=== PATIENT | female | born 1955 | race Caucasian/White ===

== ENCOUNTER → 2016-09-07 | Outpatient (CLI) | payer OTHER | LOC: FIMAGING 14:25 | DX: Z12.31 Encounter for screening mammogram for malignant neoplasm of breast (principal) | CPT/HCPCS: G0202 ==

== ENCOUNTER 2016-11-17 09:15 | Emergency (ER) | payer OTHER ==
[2016-11-17] MEDS ORDERED: ONDANSETRON 4 MG/2 ML VIAL IVP ONE (09:44)
[2016-11-17] MEDS ORDERED: NS 1,000 ML IV ONE ×2 (09:54→10:23)
[2016-11-17] MEDS ORDERED: ACETAMINOPHEN 500 MG TAB PO ONE (09:54)
[2016-11-17] MEDS ORDERED: KETAMINE 500 MG/10 ML VIAL NASAL ONE (09:54)
[2016-11-17] MEDS ORDERED: KETOROLAC 15 MG/1 ML SDV IVP ONE (09:54)
[2016-11-17 09:59] LABS: % IMMATURE GRANULYOCYTES 0.4 % (0.0-1.1); ABSOLUTE IMMATURE GRANULOCYTES 0.03 10^3/uL (0.00-0.10); ADD DIFF? NO; ADD MORPH? NO; ADD SCAN? NO; ATYPICAL LYMPHOCYTE FLAG 10 (0-99); FRAGMENT RBC FLAG 0 (0-99); HEMATOCRIT 45.1 % (38.0-47.0); HEMOGLOBIN 14.9 g/dL (12.6-16.3); LEFT SHIFT FLG 0 (0-99); LIPEMIA HEMOLYSIS FLAG 80 (0-99); MEAN CELL HEMOGLOBIN 30.2 pg (27.9-34.1); MEAN CELL VOLUME 91.3 fL (81.5-99.8); MEAN PLATELET VOLUME 10.7 fL (8.7-11.7); PLATELET CLUMPS FLAG 0 (0-99); PLATELET COUNT 245 10^3/uL (150-400); RED BLOOD CELL COUNT 4.94 10^6/uL (4.18-5.33); RED CELL DISTRIBUTION WIDTH 12.9 % (11.5-15.2)
[2016-11-17 10:01] LABS: COLOR YELLOW; LEUKOCYTE ESTERASE,URINE TRACE (NEGATIVE); NITRITE,URINE NEGATIVE (NEGATIVE)
--- NOTE | 2016-11-17 10:02 | EDPHY ---
H & P Stated Complaint: L flank pain starting at 0700 Time Seen by Provider: 11/17/16 09:53 HPI/ROS: CHIEF COMPLAINT: Flank pain HISTORY OF PRESENT ILLNESS: The patient is a 60 y/o female arriving with her complaining of severe and rapidly progressing left flank pain onset at 07:00 this morning, about 3 hours ago. She has a history of several bladder surgeries and recurring UTIs, but denies any recent UTI symptoms and felt normal yesterday. She initially thought her pain was the "worst gas pain on the planet" and it did not improve after a bowel movement. Her pain has worsened dramatically and feels localized to her left flank. It is nonradiating. Nothing alleviates her pain. She has associated waves of nausea. No history of prior kidney stones. Colonoscopy in August this year showed diverticulosis. REVIEW OF SYSTEMS: Constitutional: No fever, no chills Eyes: No visual changes ENT: No sore throat Respiratory: No cough, no shortness of breath Cardiac: No chest pain Gastrointestinal: see HPI Genitourinary: No hematuria, no dysuria Musculoskeletal: No leg pain or swelling Skin: No rash Neurological: No headache, no numbness, no weakness Psychiatric: No depression - Personal History Current Tetanus/Diphtheria Vaccine: Unsure Current Tetanus Diphtheria and Acellular Pertussis (TDAP): Unsure - Medical/Surgical History PMH: Cystocele, bladder prolapse, complications from bladder mesh, hysterectomy, recurring UTIs Hx Asthma: No Hx Chronic Respiratory Disease: No Hx Diabetes: No Hx Cardiac Disease: No Hx Renal Disease: No Hx Cirrhosis: No Hx Alcoholism: No Hx HIV/AIDS: No Hx Splenectomy or Spleen Trauma: No Other PMH: Hyster,foot surgery, T/A, Prolapse repair with mesh and then mesk removed. - Social History Smoking Status: Former smoker Additional Social History: at bedside. - Physical Exam Exam: General Appearance: Alert, appears in pain Eyes: Pupils equal and round, no conjunctival pallor or injection ENT, Mouth: Mucous membranes moist Neck: Normal inspection Respiratory: Lungs are clear to auscultation Cardiovascular: Regular rate and rhythm Gastrointestinal: Abdomen is soft with LUQ tenderness Back: no CVA tenderness Neurological: A&O, nonfocal, normal gait Skin: Warm and dry, no rash Extremities: Nontender, no pedal edema Psychiatric: Mood and affect normal Constitutional: Initial Vital Signs Temperature (C) 36.9 C 11/17/16 09:18 Heart Rate 84 11/17/16 09:18 Respiratory Rate 17 11/17/16 09:18 Blood Pressure 172/116 H 11/17/16 09:18 O2 Sat (%) 95 11/17/16 09:18 O2 Delivery Mode Room Air Allergies/Adverse Reactions: amoxicillin trihydrate [From Augmentin] Allergy (Severe, Verified 07/14/14 12:50 ) TROUBLE BREATHING/HIVES/RASH Penicillins Allergy (Severe, Verified 07/14/14 12:50) TROUBLE BREATHING/HIVES/RASH potassium clavula *RETIRED-01/25/12 [From Augmentin] Allergy (Severe, Verified 07/14/14 12:50) TROUBLE BREATHING/HIVES/RASH gluten [Gluten] Allergy (Intermediate, Verified 07/14/14 12:50) DIARRHEA/N&V morphine Allergy (Intermediate, Verified 11/17/16 12:20) Hives amoxicillin [Amoxicillin] Allergy (Mild, Verified 07/14/14 12:50) Rash DAIRY Allergy (Intermediate, Uncoded 07/14/14 12:50) DIARRHEA/N&V Home Medications: Medication Instructions Recorded Hydrocodone/APAP 5/325 [Aurora 1 - 2 tab PO Q4H PRN #10 tab 11/17/16 5/325] Ondansetron Odt [Zofran Odt] 4 mg PO Q4PRN #8 tab 11/17/16 Tamsulosin HCl [Flomax 0.4 MG (RX)] 0.4 mg PO DAILY #4 cap 11/17/16 Medical Decision Making - Diagnostics Imaging Results: Imaging Impressions Abdomen/Pelvis CT 11/17/16 09:55 Impression: 1. Mild to moderate left hydroureteronephrosis secondary to a 3 mm obstructing calculus in the posterior left side of the bladder either in the ureterovesical junction or just passed into the bladder. 2. Additional nonobstructing left 3 mm nephrolithiasis. 3. No right nephrolithiasis or hydronephrosis. Attention: This CT examination is specifically designed to evaluate patients who are clinically suspected of having acute obstructive uropathy. This examination does not use radiographic contrast, and as such, provides only a limited evaluation of the abdomen, pelvis and retroperitoneum. If there is further clinical suspicion for pathological conditions other than obstructive uropathy, a complete CT evaluation of the abdomen and pelvis utilizing intravenous, oral, and rectal contrast should be considered. Findings and recommendations discussed with Emergency Department physician, Maggie Cameron at 1050 hour, 11/17/2016. Final report concurs with initial preliminary interpretation. Imaging: Discussed imaging studies w/ skin carver Radiologist, I viewed and interpreted images myself ED Course/Re-evaluation: This is a 60 y/o female who presents with a 3-hour history of acute onset severe left flank pain. No prior history of kidney stones, though she does have a history of bladder surgeries and recurrent UTIs. She appears to be in moderate pain and too uncomfortable to lie down. She has moderate LUQ tenderness on exam. Her presentation is suspicious for a kidney stone. Plan for IV, labs, abdomen CT, and symptom management. 50mg IN Ketamine, 4mg IV Zofran, 1000mg PO Tylenol, and 1L IV NS administered. Patient continues to be in significant pain. 4mg IV morphine and 100mL IV lidocaine ordered. CT shows left ureteral stone around the UVJ or possibly in the bladder with hydronephrosis. I discussed these results with the patient. She continues to have pain. Lidocaine not given because of pt concern. 1150: Patient continues to have pain. Morphine 6 mg IV given. 1155: Patient developed erythema of her arm directly after morphine administration. 25mg IV Benadryl administered for presumed allergic reaction to morphine. No systemic or respiratory symptoms at this time. Will continue to monitor. 1250: Reassessed patient. She has taken hydrocodone before without issue, so I' ve ordered one tab PO for her to try here. Feels much better after hydrocodone and is ready to go home. Kidney stone instructions given. Differential Diagnosis: Differential diagnosis includes though it is not limited to appendicitis, cholecystitis, diverticulitis, pyelonephritis, bowel perforation, small bowel obstruction. - Data Points Laboratory Results: Laboratory Results 11/17/16 09:34 11/17/16 09:34 11/17/16 11/17/16 11/17/16 09:34 09:34 09:34 WBC 6.86 10^3/uL 10^3/uL (3.80-9.50) RBC 4.94 10^6/uL 10^6/uL (4.18-5.33) Hgb 14.9 g/dL g/dL (12.6-16.3) Hct 45.1 % % (38.0-47.0) MCV 91.3 fL fL (81.5-99.8) MCH 30.2 pg pg (27.9-34.1) MCHC 33.0 g/dL g/dL (32.4-36.7) RDW 12.9 % % (11.5-15.2) Plt Count 245 10^3/uL 10^3/uL (150-400) MPV 10.7 fL fL (8.7-11.7) Neut % (Auto) 66.4 % % (39.3-74.2) Lymph % (Auto) 24.8 % % (15.0-45.0) [place] % (Auto) 6.4 % % (4.5-13.0) Eos % (Auto) 0.7 % % (0.6-7.6) Baso % (Auto) 1.3 % % (0.3-1.7) Nucleat RBC Rel Count 0.0 % % (0.0-0.2) Absolute Neuts (auto) 4.55 10^3/uL 10^3/uL (1.70-6.50) Absolute Lymphs (auto) 1.70 10^3/uL 10^3/uL (1.00-3.00) Absolute Monos (auto) 0.44 10^3/uL 10^3/uL (0.30-0.80) Absolute Eos (auto) 0.05 10^3/uL 10^3/uL (0.03-0.40) Absolute Basos (auto) 0.09 10^3/uL 10^3/uL (0.02-0.10) Absolute Nucleated RBC 0.00 10^3/uL 10^3/uL (0-0.01) Immature Gran % 0.4 % % (0.0-1.1) Immature Gran # 0.03 10^3/uL 10^3/uL (0.00-0.10) Sodium 143 mEq/L mEq/L (134-144) Potassium 4.2 mEq/L mEq/L (3.5-5.2) Chloride 111 mEq/L H mEq/L (97-110) Carbon Dioxide 18 mEq/l L mEq/l (22-31) Anion Gap 14 mEq/L mEq/L (8-16) BUN 23 mg/dL mg/dL (7-23) Creatinine 0.8 mg/dL mg/dL (0.6-1.0) Estimated GFR > 60 Glucose 125 mg/dL H mg/dL (70-100) Calcium 9.6 mg/dL mg/dL (8.5-10.4) Urine Color YELLOW Urine Appearance CLEAR Urine pH 5.0 (5.0-7.5) Ur Specific [place] 1.019 (1.002-1.030) Urine Protein NEGATIVE (NEGATIVE) Urine Ketones TRACE H (NEGATIVE) Urine Blood 1+ H (NEGATIVE) Urine Nitrate NEGATIVE (NEGATIVE) Urine Bilirubin NEGATIVE (NEGATIVE) Urine Urobilinogen NEGATIVE EU EU (0.2-1.0) Ur Leukocyte Esterase TRACE H (NEGATIVE) Urine RBC 5-10 /hpf H /hpf (0-3) Urine WBC 3-5 /hpf H /hpf (0-3) Ur Epithelial Cells TRACE /lpf /lpf (NONE-1+) Urine Mucus TRACE /lpf /lpf (NONE-1+) Urine Glucose NEGATIVE (NEGATIVE) Medications Given: Discontinued Medications Acetaminophen (Tylenol) 1,000 mg PO EDNOW ONE Stop: 11/17/16 09:55 Last Admin: 11/17/16 10:17 Dose: 1,000 mg Hydrocodone Bitart/Acetaminophen (Aurora 5/325) 1 tab PO EDNOW ONE Stop: 11/17/16 12:39 Last Admin: 11/17/16 13:04 Dose: 1 tab Diphenhydramine HCl (Benadryl Injection) 25 mg IVP EDNOW ONE Stop: 11/17/16 12:53 Last Admin: 11/17/16 11:53 Dose: 25 mg Sodium Chloride (Ns) 1,000 mls @ 3,000 mls/hr IV EDNOW ONE Stop: 11/17/16 10:13 Last Admin: 11/17/16 10:18 Dose: 1,000 mls Sodium Chloride (Ns) 1,000 mls @ 0 mls/hr IV ONCE ONE; Wide Open PRN Reason: Protocol Stop: 11/17/16 10:24 Last Admin: 11/17/16 11:10 Dose: 1,000 mls Lidocaine HCl 100 mg/ Sodium (Chloride) 110 mls @ 600 mls/hr IV EDNOW ONE Stop: 11/17/16 11:01 Last Admin: 11/17/16 11:47 Dose: Not Given Ketamine HCl (Ketamine) 50 mg NASAL EDNOW ONE Stop: 11/17/16 09:55 Last Admin: 11/17/16 10:17 Dose: 50 mg Ketorolac Tromethamine (Toradol) 15 mg IVP EDNOW ONE Stop: 11/17/16 09:55 Last Admin: 11/17/16 10:17 Dose: 15 mg Morphine Sulfate (Morphine) 4 mg IVP EDNOW ONE Stop: 11/17/16 10:49 Last Admin: 11/17/16 11:09 Dose: 4 mg Morphine Sulfate (Morphine) 6 mg IVP EDNOW ONE Stop: 11/17/16 11:48 Last Admin: 11/17/16 12:14 Dose: 4 mg Ondansetron HCl (Zofran) 4 mg IVP EDNOW ONE Stop: 11/17/16 09:45 Last Admin: 11/17/16 09:51 Dose: 4 mg Departure - Departure Disposition: Home, Routine, Self-Care Clinical Impression: Kidney stone on left side Hydronephrosis Qualifiers: Hydronephrosis type: with ureteral calculous obstruction Qualified Code(s): N13.2 - Hydronephrosis with renal and ureteral calculous obstruction Allergic reaction to drug Qualifiers: Encounter type: initial encounter Qualified Code(s): T78.40XA - Allergy, unspecified, initial encounter Condition: Good Instructions: Kidney Stones (ED), Hydronephrosis (ED), General Allergic Reaction (ED) Additional Instructions: 1. Take Ibuprofen or Motrin 600 mg by mouth three times a day. 2. Vicodin as needed for severe pain 3. Flomax as directed 4. Zofran as needed for nausea 5. Strain urine as directed 6. Return to the Emergency Department for intractable pain, fever or vomiting 7. Please contact the urologist you have been referred to schedule a follow-up visit. Note: You are likely allergic to morphine due to the reaction you developed today. Please avoid use of morphine in the future and inform your providers of this allergy. You can follow up with an packaging machine supplies distributor as well if you would like to further investigate this presumed allergy. Referrals: Agnes Hartley MD [Primary Care Provider] - As per Instructions Bret Franklin MD [Medical Doctor] - As per Instructions Prescriptions: Hydrocodone/APAP 5/325 [Aurora 5/325] 1 - 2 tab PO Q4H PRN #10 tab PRN Reason: Pain, Moderate Ondansetron Odt [Zofran Odt] 4 mg PO Q4PRN #8 tab Tamsulosin HCl [Flomax 0.4 MG (RX)] 0.4 mg PO DAILY #4 cap Report Scribed for: Maggie Cameron Report Scribed by: Margi Carter Date of Report: 11/17/16 Time of Report: 10:02 Physician Review and Approval Statement: 11/17/16 10:02 Portions of this note were transcribed by a medical delivery technician. I personally performed a history, physical exam, medical decision making, and confirmed accuracy of information the transcribed note.
[2016-11-17 10:03] LABS: MUCUS TRACE /lpf (NONE-1+)
[2016-11-17 10:10] LABS: ANION GAP 14 mEq/L (8-16); CALCIUM 9.6 mg/dL (8.5-10.4); CARBON DIOXIDE 18 mEq/l (22-31); CHLORIDE 111 mEq/L (97-110); CREATININE 0.8 mg/dL (0.6-1.0); GLOMERULAR FILTRATION RATE > 60; GLUCOSE 125 mg/dL (70-100); POTASSIUM 4.2 mEq/L (3.5-5.2); SODIUM 143 mEq/L (134-144)
[2016-11-17] MEDS ORDERED: LIDOCAINE 1% 100 MG in NS 100 ML IV ONE (10:51)
[2016-11-17 12:21] VITALS: RESP 14
[2016-11-17] MEDS ORDERED: HYDROCODONE/APAP 5/325 TAB PO ONE (12:38)
[2016-11-17 14:32] VITALS: BP 125/82; PULSE 78; TEMP 98.1; O2SAT 97
== END 2016-11-17 14:31 | disposition home or self-care (01) ==
DX: N13.2 Hydronephrosis with renal and ureteral calculous obstruction (principal); T78.40XA Allergy, unspecified, initial encounter; E86.9 Volume depletion, unspecified; Z90.710 Acquired absence of both cervix and uterus; Z87.891 Personal history of nicotine dependence
CPT/HCPCS: 96374; J1200; J1885; J2405

== ENCOUNTER → 2017-09-16 | Outpatient (CLI) | payer OTHER | LOC: FIMAGING 14:20 | PROVIDERS: ATTEND Internal Medicine | DX: Z12.31 Encounter for screening mammogram for malignant neoplasm of breast (principal) ==

== ENCOUNTER 2018-06-15 11:22 | Emergency (ER) | payer OTHER ==
[2018-06-15 11:34] VITALS: BP 148/95
--- NOTE | 2018-06-15 11:35 | EDPHY ---
H & P Time Seen by Provider: 06/15/18 11:35 HPI/ROS: CHIEF COMPLAINT: Right shoulder injury post slip at home HISTORY OF PRESENT ILLNESS: 62-year-old female via private vehicle with her complaining of acute left shoulder pain after she slipped at home, landed on her left shoulder. No head injury. No chest pain or injury. No abdominal pain injury. This was a mechanical, non syncopal episode. She did complain of feeling lightheaded secondary to pain only after she fell. No syncope however and no prodrome. No straddle injury. No alcohol or drug use. No paresthesia. PRIMARY CARE PROVIDER:Dr. Agnes Hartley REVIEW OF SYSTEMS: 10 systems reviewed and negative with the exception of the elements mentioned in the history of present illness PAST MEDICAL/SURGICAL HISTORY: no anticoagulant use, SOCIAL HISTORY: denies alcohol use at time of incident PHYSICAL EXAM 1) GENERAL: Well-developed, well-nourished, alert and oriented. Appears uncomfortable. Answering questions appropriately. 2) HEAD: Normocephalic, atraumatic 3) HEENT: Pupils equal, round, reactive to light bilaterally. Negative [place]. Nasopharynx, oropharynx, clear. No deformity or angulation of nose. No septal hematoma. No rhinorrhea. No oral trauma. Ears bilaterally with normal tympanic membranes. No hemotympanum. No fluid or blood in the external auditory canal. No raccoon eyes. No Watson sign. Teeth are normally aligned with no gross malocclusion, TMJ bilaterally nontender, facial bones nontender including the zygomatic arch, maxilla mandible. 4) NECK: No cervical collar is on. Posterior cervical spine is nontender, no stepoff, no effusion. Full range of motion which does not elicit any midline cervical spine pain, no posterior midline tenderness, no step-off. 5) LUNGS: Clear to auscultation bilaterally, no wheezes, no rhonchi, no retractions. No obvious signs of trauma. No chest wall pain. No flaring, no grunting. Moving symmetrically. No crepitus. 6) HEART: [Regular rate and rhythm, 7) ABDOMEN: No guarding, no rebound, no focal tenderness, no peritoneal signs, no signs of trauma, no ecchymosis 8) MUSCULOSKELETAL: Left upper extremity: Guarding left shoulder, tender to palpation left shoulder. Reproducible pain with range of motion. No deformity no step-off. Intact skin. No axillary nerve dysfunction. Remainder left upper extremity nontender. Soft compartments. Otherwise, Moving all extremities, no focal areas of tenderness, no obvious trauma. 9) BACK: No midline vertebral tenderness, no fluctuance, no step-off, no obvious trauma, no visual or palpable abnormality. 10) SKIN: No laceration. No abrasion DIFFERENTIAL DIAGNOSIS: In no particular order including but not limited to fracture, sprain, strain, dislocation Smoking Status: Former smoker Constitutional: Initial Vital Signs Temperature (C) 36.8 C 06/15/18 11:31 Heart Rate 70 06/15/18 11:31 Respiratory Rate 16 06/15/18 11:31 Blood Pressure 148/95 H 06/15/18 11:31 O2 Sat (%) 99 06/15/18 11:31 O2 Delivery Mode Room Air Allergies/Adverse Reactions: amoxicillin trihydrate [From Augmentin] Allergy (Severe, Verified 07/14/14 12:50 ) TROUBLE BREATHING/HIVES/RASH Penicillins Allergy (Severe, Verified 07/14/14 12:50) TROUBLE BREATHING/HIVES/RASH potassium clavula *RETIRED-01/25/12 [From Augmentin] Allergy (Severe, Verified 07/14/14 12:50) TROUBLE BREATHING/HIVES/RASH gluten [Gluten] Allergy (Intermediate, Verified 07/14/14 12:50) DIARRHEA/N&V morphine Allergy (Intermediate, Verified 11/17/16 12:20) Hives amoxicillin [Amoxicillin] Allergy (Mild, Verified 07/14/14 12:50) Rash DAIRY Allergy (Intermediate, Uncoded 07/14/14 12:50) DIARRHEA/N&V Home Medications: Medication Instructions Recorded oxyCODONE/APAP 5/325 [Percocet 1 tab PO Q6 #10 tab 06/15/18 5/325] MDM/Departure - MDM Imaging Results: Imaging Impressions Shoulder X-Ray 06/15/18 11:34 Impression: Acute minimally displaced proximal left humerus fracture. Humerus X-Ray 06/15/18 12:09 Impression: 1. Intact shaft of humerus. 2. Acute minimally displaced proximal humerus fracture. Images reviewed myself Procedures: Procedure: Splint A sling splint was applied by ER garage door technician. After application of the splint I returned and re-examined the patient. The splint was adequately immobilizing the joint and distal to the splint the patient's circulation and sensation were intact. Patient shows no signs of compartment syndrome. Was given orthopedic precautions. Medications Given: Discontinued Medications Ibuprofen (Motrin) 600 mg PO EDNOW ONE Stop: 06/15/18 11:46 Last Admin: 06/15/18 11:56 Dose: 600 mg Oxycodone/Acetaminophen (Percocet 5/325) 1 tab PO EDNOW ONE Stop: 06/15/18 11:46 Last Admin: 06/15/18 11:56 Dose: 1 tab ED Course/Re-evaluation: 12:36 p.m.: I reviewed the images with the patient her . She will need follow-up with orthopedic surgeon in given this referral information. Placed into a sling. Given analgesia prescription. No evidence of axillary nerve dysfunction. No head injury. Soft compartments. She feels comfortable being discharged. Care of patient under supervision of secondary supervising physician Dr Garcia . - Depart Disposition: Home, Routine, Self-Care Clinical Impression: Fracture of neck of left humerus Condition: Good Instructions: Proximal Humerus Fracture (ED) Additional Instructions: Return to the ER immediately if you experience discoloration, have worsening pain, numbness, tingling, or any other symptoms that concern you. If you received x-rays in the emergency department today, be advised, that ligamentous , tendon, muscular, and other non-bony injury cannot be fully ruled out. Try to keep your affected extremity elevated above the level of your chest, and keep cold packs on the affected area, for the next 48 hours. Prescriptions: oxyCODONE/APAP 5/325 [Percocet 5/325] 1 tab PO Q6 #10 tab Referrals: Henry Thomas MD [Medical Doctor] - 2-3 days, call for appt.
[2018-06-15] MEDS ORDERED: IBUPROFEN 600 MG TAB PO ONE (11:45)
[2018-06-15] MEDS ORDERED: OXYCODONE/APAP 5/325 TAB PO ONE (11:45)
== END 2018-06-15 13:01 | disposition home or self-care (01) ==
DX: S42.292A Other displaced fracture of upper end of left humerus, initial encounter for closed fracture (principal); W01.0XXA Fall on same level from slipping, tripping and stumbling without subsequent striking against object, initial encounter; Y92.009 Unspecified place in unspecified non-institutional (private) residence as the place of occurrence of the external cause; Y99.9 Unspecified external cause status; Y93.9 Activity, unspecified

== ENCOUNTER → 2018-06-21 | Outpatient (CLI) | payer OTHER | LOC: CIMAGING 14:26 | PROVIDERS: ATTEND Orthopaedic Surgery | DX: S42.292D Other displaced fracture of upper end of left humerus, subsequent encounter for fracture with routine healing (principal); S42.142D Displaced fracture of glenoid cavity of scapula, left shoulder, subsequent encounter for fracture with routine healing | CPT/HCPCS: 73200-PO ==